=== PATIENT | female | born 1980 | race Caucasian/White ===

== ENCOUNTER 2022-08-27 05:33 | Day surgery (SDC) | payer BC ==
[2022-08-22 11:32] VITALS: BMI 30.8
[2022-08-27] MEDS ORDERED: Midazolam HCl 2 mg/2 ml Vial ONE ×2 (07:51→08:32)
[2022-08-27] MEDS ORDERED: Lidocaine 1% (PF) 30 ML VIAL ONE (08:30)
[2022-08-27] MEDS ORDERED: EPINEPHrine 1 MG/ML AMP ONE (08:30)
[2022-08-27] MEDS ORDERED: CEFAZOLIN 1 GM VIAL ONE (08:31)
[2022-08-27] MEDS ORDERED: Lidocaine 1% PF 5 ML VIAL ONE (08:32)
[2022-08-27] MEDS ORDERED: PROPOFOL 20 ML ONE ×2 (08:32→08:59)
[2022-08-27] MEDS ORDERED: Ondansetron PF 4 MG/2 ML Vial ONE (08:32)
[2022-08-27] MEDS ORDERED: Dexamethasone 20 MG/5 ML VIAL ONE (08:32)
[2022-08-27] MEDS ORDERED: Fentanyl 100 MCG/2 ML VIAL ONE ×2 (08:32→10:10)
[2022-08-27] MEDS ORDERED: oFLOXacin 0.3% Opth 5 ML BOT ONE (09:38)
[2022-08-27] MEDS ORDERED: HYDROcodone/Acetaminophen 5/325 mg Tablet ONE (10:32)
== END 2022-08-27 11:30 | disposition home or self-care (01) ==
LOC: CSHSDC 05:33
PROVIDERS: ATTEND Otolaryngology Otolaryngic Allergy
PROC: 0HR2X73 Replacement of Right Ear Skin with Autologous Tissue Substitute, Full Thickness, External Approach (ICD-10-PCS; principal; 2022-08-27)
DX: C44.212 Basal cell carcinoma of skin of right ear and external auricular canal (principal); F41.9 Anxiety disorder, unspecified; K21.9 Gastro-esophageal reflux disease without esophagitis; E66.9 Obesity, unspecified; Z68.31 Body mass index [BMI] 31.0-31.9, adult; Z87.891 Personal history of nicotine dependence; Z79.899 Other long term (current) drug therapy; Z88.2 Allergy status to sulfonamides; Z88.8 Allergy status to other drugs, medicaments and biological substances; Z91.012 Allergy to eggs
CPT/HCPCS: 88305; 88331; 88332; J0171; J0690; J1100; J2001; J2250; J2405; J2704; J3010